=== PATIENT | female | born 1985 | race Caucasian/White ===

== ENCOUNTER 2022-06-27 05:55 | Day surgery (SDC) | payer BC, SELFPAY ==
[2022-06-27 06:25] VITALS: BP 107/72; PULSE 82; RESP 16; TEMP 37.1; O2SAT 96
[2022-06-27 06:27] VITALS: BMI 26.7
[2022-06-27] MEDS: LACTATED RINGERS 1000 ML 1,000 ML 100 ML IV (06:30)
--- NOTE | 2022-06-27 06:58 | SUR.PREOP ---
Hibiclens soak to left foot complete.
--- NOTE | 2022-06-27 07:14 | CRLHL7_ITS ---
For Patients: As a result of the Cures Act, medical imaging exams and procedure reports are released immediately into your electronic medical record. You may view this report before your referring provider. If you have questions, please contact your health care provider. Indication: Intraoperative bunionectomy Technique: Three intraoperative fluoroscopic images Comparison: No comparison Findings: Three intraoperative fluoroscopic images demonstrate plate and screw fixation the 1st tarsometatarsal joint. Screw fixation over the first metatarsal through the medial and intermediate cuneiform. 41 seconds fluoro time Dictated by Luh Delgado MD @ 06/27/2022 10:06:10 AM (Electronically Signed)
[2022-06-27] MEDS: BUPIVACAINE 0.5% 30 ML INJECTION (07:20)
[2022-06-27] MEDS: CEFAZOLIN 2 GM INJ IVP (07:21)
--- NOTE | 2022-06-27 09:18 | SUR.OPER ---
DRILL FLASHED IN STERILIZER. BATCH NUMBER [id number]
[2022-06-27 10:13] VITALS: BP 107/46; PULSE 68; RESP 16; TEMP 36.3; O2SAT 96
--- NOTE | 2022-06-27 10:16 | W.ANESCHARGE ---
Anesthesia Charges Start Date/Time Anesthesia Start Date: 06/27/22 Anesthesia Start Time: 07:11 Stop Date/Time Anesthesia Stop Date: 06/27/22 Anesthesia Stop Time: 10:16 Summary Emergency: No
--- NOTE | 2022-06-27 10:23 | PM.GSPRC ---
Operative Note Date of procedure: 06/27/22 Type of Procedure: Lapidus bunionectomy left Procedure Description: Preoperative diagnosis: Hallux valgus with bunion deformity left foot Postoperative diagnosis: Hallux valgus with bunion deformity left foot Procedure: Lapidus bunionectomy left foot After discussing the risks and benefits of the procedure, the patient signed informed consent.? The operative site was marked and the patient was brought to the operating room and placed on the operating table in supine position.? Care was taken to pad the patient's pressure points.?? The patient was then [intubated/given sedation] by anesthesia.?? 30 mL 0.5% bupivacaine plain injected into the left foot. The operative site was then prepped and draped in the usual sterile fashion.? A time-out was then performed. left limb was exsanguinated the tourniquet inflated. Linear incision was made over the dorsal medial 1st metatarsal cuneiform joint. The incision was carried down through skin subcutaneous tissues. Extensor tendon was retracted laterally and the cutaneous nerve retracted medially. Joint capsule was incised and reflected away from the joint. A joint distractor was applied and the joint distracted. Using an osteotome and curette the 1st metatarsal cuneiform joint was resected. Reciprocal planing was performed with a sagittal saw. Once adequate correction was achieved we turned our attention to the 1st intermetatarsal space. 1 cm incision was made and blunt dissection was carried down along the lateral 1st MPJ. Plantar lateral joint capsule was released as well as the dorsal fibular sesamoidal ligaments and the adductor tendon. Linear incisions made with the medial 1st metatarsal head. The subcutaneous tissues bluntly dissected and the neurovascular structures retracted superior to inferior. Linear capsular incision was made exposing the 1st metatarsal head. guide pin was placed and the lapifuse jig applied and the 1st metatarsal was corrected in all 3 planes. Guide pin was placed in the plantar medial 1st metatarsal base and driven across the medial cuneiform and into the middle cuneiform. C-arm confirmed position. Pins from the distractor removed. 4.0 cannulated screw was then placed with excellent compression across the fusion site. Dorsomedial based plate was placed across the 1st metatarsal cuneiform joint fusion site and 3.5 mm locking screws were placed 2 distal and 2 proximal. C-arm images confirmed excellent correction of the bunion deformity. The 1st metatarsal head was then remodeled with a sagittal saw and rotary bur. All incisions were thoroughly irrigated normal sterile saline. Additional bone graft was injected into a small void in the central portion of the fusion site. The fascia of the proximal incision repaired with 4-0 Vicryl. Subcutaneous tissues reapproximated with 4-0 Monocryl. At this time the tourniquet was released. No significant active bleeding noted. Redundant capsular tissue was excised at the 1st metatarsal head the joint capsule repaired with 3-0 Vicryl. May incisions were closed with a combination of 3-0 Monocryl and 4-0 Prolene. sterile dressings were then applied. Cam boot placed. ?? The patient was then woken and transported to the recovery area in stable condition. The patient tolerated the procedure well. Written and verbal postop instructions given. Oxycodone for pain. She will follow-up in 2 days time for dressing change. Partial weight-bearing to the heel in a Cam boot with crutch assistance. Findings: Hemostasis: ankle tourniquet at 250 mm Hg Complications: None apparent. Implants: Pierron lapifuse plate system with 0 degree left 5 hole plate x1. 40 mm 4.0 cannulated partially-threaded screw x1, 3.5 mm locking screws x4. Anesthesia: MAC and local Surgeon: Salas Arambula DPM Estimated blood loss (mL): 10 Condition: stable Disposition: same day
[2022-06-27 10:30] VITALS: BP 98/61; PULSE 74; RESP 16; O2SAT 100
[2022-06-27] MEDS: OxyCODONE/APAP 5-325 TABLET PO (11:08)
== END 2022-06-27 11:48 | disposition home or self-care (01) ==
PROVIDERS: PCP Family Medicine; Visit Provider Podiatrist
PROC: (CPT 28292; principal; 2022-06-27 07:15)
DX: M20.12 Hallux valgus (acquired), left foot (principal); M21.612 Bunion of left foot
CPT/HCPCS: 28297; 01480; 73620; 76000; 84703; A9270; C1713; J0690; J1100; J2250; J2405; J2704; J3010; J3490; J7120

== ENCOUNTER 2022-09-23 09:45 | Outpatient (RCR) | payer BC, SELFPAY | END 2022-11-02 14:37 | disposition home or self-care (01) | PROVIDERS: PCP Family Medicine; Visit Provider Podiatrist | DX: M20.12 Hallux valgus (acquired), left foot (principal); Z51.89 Encounter for other specified aftercare | CPT/HCPCS: 97110; 97140; 97161 ==